=== PATIENT | male | born 1950 | race Caucasian/White ===

== ENCOUNTER → 2018-05-08 | Day surgery (SDC) | payer MEDICARE, BC ==
[2018-05-05 13:08] VITALS: BMI 37.6
[2018-05-08 10:35] VITALS: BP 161/85; TEMP 97.4
--- NOTE | 2018-05-08 14:00 | RAD ---
LUMBAR SPINE MYELOGRAM INDICATION: Low back pain and weakness. PROCEDURE: After informed consent had been obtained, the patient was escorted to the interventional suite and pl aced on the procedural table. Junior Legal [employer] imaging was performed. The patient was placed into a prone posi tion. Skin on the low back was then prepped and draped in the standard sterile fashion and topical a nd regional soft tissue anesthesia was achieved with 1% lidocaine and sodium bicarbonate. Left L4 i nterlaminar approach was selected, and a -22 gauge needle was uneventfully advanced into the thecal s ac with clear color CSF. Subsequently, 9 cc Isovue-M 200 was instilled into the thecal sac under gianni l time fluoroscopy. Appropriate opacification of thecal sac demonstrated with imaging stored for con firmation. The needle was then removed from the patient. The patient tolerated the procedure well a nd was then transferred to CT to undergo subsequent myelogram. Reference separate report for full de tails. EXPOSURE DATA: 0.2 minutes intermittent fluoroscopy, 71 mGy*^m2. IMPRESSION: Technically successful lumbar myelogram as detailed above. POS: CONG
--- NOTE | 2018-05-09 07:47 | CT ---
LUMBAR SPINE CT WITH CONTRAST CT LUMBAR MYELOGRAM: INDICATION: Lumbar radiculopathy, left leg weakness. FINDINGS: There is multilevel posterior metallic fusion spanning L3 through L5 with bilateral pedicle screws at L3, L4, and L5 as well as bilateral vertical interconnecting rods. There is prominent end plate scl erosis compatible with Modic-type III degenerative process of inferior L2 and superior L3. Interosse ous hemangioma posteriorly from the L2 vertebral body. Mild retrolisthesis of L2 on 3 is present. Conus medullaris terminates at the L1 level. L1-2: Trace retrolisthesis with associated disk-osteophyte results in mild narrowing of the central canal and mild bilateral neural foraminal narrowing. L2-3: There is moderate central canal stenosis due to retrolisthesis and disk-osteophyte as well as bilateral facet hypertrophy. There is moderate osseous compromise of each neural foramen. L3-4: Mild narrowing of the central canal due to degenerative osseous hypertrophy. There is mild to moderate bilateral osseous compromise of each neural foramen. L4-5: No high-grade central canal stenosis or osseous compromise of the neural foramen. L5-S1: There is no high-grade osseous compromise of the central canal or neural foramina. There is s cattered vascular disease. IMPRESSION: Postoperative lumbar spine with multilevel degenerative change as outlined above. Findings are most pronounced at the L2-3 level, the level just cephalad to site of multilevel fusion as discussed above . POS: CONG
== END ==
LOC: RAD 09:08 → EDSTATUS 10:00
PROVIDERS: ATTEND Neurological Surgery
DX: M47.26 Other spondylosis with radiculopathy, lumbar region (principal); I12.9 Hypertensive chronic kidney disease with stage 1 through stage 4 chronic kidney disease, or unspecified chronic kidney disease; E11.22 Type 2 diabetes mellitus with diabetic chronic kidney disease; N18.3 Chronic kidney disease, stage 3 (moderate); G95.9 Disease of spinal cord, unspecified; E78.5 Hyperlipidemia, unspecified; Z79.84 Long term (current) use of oral hypoglycemic drugs; Z79.899 Other long term (current) drug therapy
CPT/HCPCS: 62304; 72132

== ENCOUNTER 2018-05-30 06:15 | Inpatient (IN) | payer MEDICARE, BC ==
[2018-05-29 12:24] VITALS: BMI 37.6
[2018-05-30] MEDS ORDERED: Sodium Chloride 0.9% 10 ML ONE (06:24)
[2018-05-30 07:01] LABS: #Eosinphils 0.1 thou/uL (0.0-0.7); #Lymphocytes 2.4 thou/uL (1.20-3.40); #Monocytes 0.5 thou/uL (0.11-0.59); %Basophils 0.7 % (0.0-1.0); %Eosinophils 2.3 % (0.0-10.0); %Lymphocytes 39.9 % (21.0-51.0); %Monocytes 8.9 % (0.0-10.0); %Neutrophils 48.2 % (42.0-75.0); Mean Corpuscular HGB CONC 34.8 g/dL (32.0-36.0); Mean Corpuscular Hemoglobin 32.5 pg (27.0-31.0); Mean Corpuscular Volume 93.3 fL (78.0-98.0); Mean Platelet Volume 6.7 fL (7.4-10.4); Platelet Count 198 thou/uL (130-400); RBC Distribution Width 12.3 % (11.5-14.5); White Blood Cell (WBC) Count 6.1 thou/uL (4.8-10.8)
[2018-05-30] MEDS ORDERED: Fentanyl 250 MCG/5 ML VIAL ONE (07:05)
[2018-05-30] MEDS ORDERED: CEFAZOLIN 2 GM/50 ML BAG ONE (07:05)
[2018-05-30 07:20] LABS: Anion Gap 12 mmol/L (10-20); BUN (Urea Nitrogen) 18 mg/dL (8.4-25.7); Calc. Creatinine Clearance 101 mL/min (70-130); Calcium 9.2 mg/dL (7.8-10.44); Carbon Dioxide 28 mmol/L (23-31); Chloride 103 mmol/L (98-107); Estimated GFR-MDRD 60; Glucose 119 mg/dL (80-115); Potassium 3.9 mmol/L (3.5-5.1); Sodium 139 mmol/L (136-145)
[2018-05-30] MEDS ORDERED: Fentanyl 100 MCG/2 ML VIAL ONE ×3 (09:55→11:04)
[2018-05-30] MEDS ORDERED: Promethazine HCl 12.5 MG SUPP PR PRN (12:21)
[2018-05-30] MEDS ORDERED: traMADol HCl 50 MG TAB PO PRN ×2 (12:21)
[2018-05-30] MEDS ORDERED: diphenhydrAMINE 25 MG CAP PO PRN (12:21)
[2018-05-30] MEDS ORDERED: Promethazine HCl 25 MG/ML VIAL IM PRN (12:21)
[2018-05-30] MEDS ORDERED: diphenhydrAMINE 50 MG/ML VIAL IVP PRN (12:21)
[2018-05-30] MEDS ORDERED: Mag-Al 1200 mg/1200 mg/30 ML UDCUP PO PRN (12:21)
[2018-05-30] MEDS ORDERED: Promethazine 25 MG TAB PO PRN (12:21)
[2018-05-30] MEDS ORDERED: Milk Of Magnesia 30 ML UDCUP PO PRN (12:21)
[2018-05-30] MEDS ORDERED: Morphine 4 MG/ML VIAL SLOW IVP PRN (12:21)
[2018-05-30] MEDS ORDERED: Ondansetron PF 4 MG/2 ML Vial IM PRN (12:24)
[2018-05-30] MEDS ORDERED: Furosemide 20 MG TAB PO PRN (12:33)
[2018-05-30] MEDS ORDERED: Morphine 2 MG/ML SYRINGE SLOW IVP PRN (13:26)
[2018-05-30] MEDS ORDERED: Morphine 10 MG/ML VIAL SLOW IVP PRN (13:28)
[2018-05-30] MEDS: metFORMIN 500 MG TAB PO SCH ×2 (13:42→17:48)
[2018-05-30] MEDS: tiZANidine HCl 4 MG TAB PO PRN ×2 (13:43→23:42)
[2018-05-30] MEDS: HYDROcodone/Acetaminophen 10/325 mg Tablet PO PRN ×3 (13:43→23:43)
[2018-05-30] MEDS ORDERED: Dextrose 50% Abboject 50 ML SYRINGE SLOW IVP PRN (14:48)
[2018-05-30] MEDS ORDERED: Diabetic Tussin 200 MG/10 ML UDCUP PO PRN (14:48)
[2018-05-30] MEDS ORDERED: Senokot S 8.6-50 MG TAB PO PRN (14:48)
[2018-05-30] MEDS ORDERED: hydrALAZINE 20 MG/ML VIAL SLOW IVP PRN (14:48)
[2018-05-30] MEDS ORDERED: Artificial Tear Sol 15 ML BOT EA EYE PRN (14:48)
[2018-05-30] MEDS ORDERED: Dextrose 5% in Water 1,000 ML IV PRN (14:48)
[2018-05-30] MEDS ORDERED: HumaLOG 300 UNITS/3 ML VIAL SC PRN (14:48)
[2018-05-30] MEDS ORDERED: Sodium Chloride 0.65% Nasal 44 ML BOT EA NARE PRN (14:48)
[2018-05-30] MEDS ORDERED: Loperamide HCl 2 MG CAP PO PRN (14:48)
[2018-05-30] MEDS ORDERED: Zolpidem Tartrate 5 MG TAB PO PRN (14:48)
[2018-05-30] MEDS ORDERED: Eucerin (Mineral Oil/Petrolatum,White) 30 gm Jar TOP PRN (14:48)
--- NOTE | 2018-05-30 14:49 | PDOC.PN ---
- Subjective Encounter Start Date: 05/30/18 Encounter Start Time: 15:00 -: old records requested/rev Patient seen and examined. No new complaints. No overnight events - Objective MAR Reviewed: Yes Vital Signs & Weight: Vital Signs (12 hours) Temp Pulse Resp BP Pulse Ox 05/30/18 13:30 65 18 142/61 H 05/30/18 11:30 97.4 F L 57 L 16 153/67 H 99 Weight Weight 270 lb Result Diagrams: 05/30/18 06:50 05/30/18 06:50 Additional Labs: old lab and record reviewed Phys Exam - Physical Examination Constitutional: NAD HEENT: PERRLA, moist MMs, sclera anicteric Neck: no JVD, supple Respiratory: no wheezing, no rales, no rhonchi Cardiovascular: RRR, no significant murmur, no rub Gastrointestinal: soft, non-tender, no distention, positive bowel sounds Musculoskeletal: no edema, pulses present Neurological: non-focal, normal sensation, moves all 4 limbs Lymphatic: no nodes Psychiatric: normal affect, A&O x 3 Skin: no rash, normal turgor Dx/Plan (1) S/P laminectomy with spinal fusion Code(s): Z98.1 - ARTHRODESIS STATUS Status: Acute (2) BPH (benign prostatic hyperplasia) Code(s): N40.0 - BENIGN PROSTATIC HYPERPLASIA WITHOUT LOWER URINRY TRACT SYMP Status: Chronic (3) Diabetes type 2, controlled Code(s): E11.9 - TYPE 2 DIABETES MELLITUS WITHOUT COMPLICATIONS Status: Chronic (4) Dyslipidemia Code(s): E78.5 - HYPERLIPIDEMIA, UNSPECIFIED Status: Chronic (5) Hypertension Code(s): I10 - ESSENTIAL (PRIMARY) HYPERTENSION Status: Chronic (6) Obesity (BMI 30-39.9) Code(s): E66.9 - OBESITY, UNSPECIFIED Status: Chronic - Plan cont current plan of care, plan discussed w/ family, PT/OT * home medication reconciled * hyperglycemia protocol treatment for diabetes * hold BP meds for SBP <120 * code status- full code * medication reviewed as below * symptomatic treatment * continue PT as tolerated * post operative management as per primary team. Review of Systems - Review of Systems ENT: negative: Ear Pain, Ear Discharge, Nose Pain, Nose Discharge, Nose Congestion, Mouth Pain, Mouth Swelling, Throat Pain, Throat Swelling, Other Respiratory: negative: Cough, Dry, Shortness of Breath, Hemoptysis, SOB with Excertion, Pleuritic Pain, Sputum, Wheezing Cardiovascular: negative: chest pain, palpitations, orthopnea, paroxysmal nocturnal dyspnea, edema, light headedness, other Gastrointestinal: negative: Nausea, Vomiting, Abdominal Pain, Diarrhea, Constipation, Melena, Hematochezia, Other Genitourinary: negative: Dysuria, Frequency, Incontinence, Hematuria, Retention , Other Musculoskeletal: Back Pain. negative: Neck Pain, Shoulder Pain, Arm Pain, Hand Pain, Leg Pain, Foot Pain, Other Skin: negative: Rash, Lesions, Chris, Bruising, Other - Medications/Allergies Allergies/Adverse Reactions: Allergies Allergy/AdvReac Type Severity Reaction Status Date / Time No Known Allergies Allergy Verified 05/08/18 10:21 Medications: Current Medications Hydrocodone Bitart/Acetaminophen ([place] 10/325) 1 tab PO Q4H PRN PRN Reason: PAIN (1-3) Last Admin: 05/30/18 13:43 Dose: 1 tab Hydrocodone Bitart/Acetaminophen ([place] 10/325) 2 tab PO Q4H PRN PRN Reason: PAIN (4-6) Al Hydroxide/Mg Hydroxide (Maalox) 30 ml PO Q4H PRN PRN Reason: Heartburn or Indigestion Atorvastatin Calcium (Lipitor) 20 mg PO HS [facility] Calcium/Vitamin D (Caltrate 600 + Vit D) 1 tab PO QAM-WM [facility] Cefazolin Sodium/Dextrose (Ancef 2 Gm/50 Ml) 2 gm IVPB 0000,0800,1600 [facility] Diphenhydramine HCl (Benadryl) 25 mg PO Q6H PRN PRN Reason: Itching Diphenhydramine HCl (Benadryl) 25 mg IVP Q6H PRN PRN Reason: Itching Dronedarone (Multaq) 400 mg PO BID-WM [facility] Furosemide (Lasix) 20 mg PO DAILYPRN PRN PRN Reason: Edema Gabapentin (Neurontin) 900 mg PO HS [facility] Glimepiride (Amaryl) 4 mg PO QAM-WM [facility] Lisinopril/HCTZ (Prinizide 20-12.5) 2 tab PO DAILY [facility] Sodium Chloride (Normal Saline 0.9%) 1,000 mls @ 75 mls/hr IV .[id number] [facility] Magnesium Hydroxide (Milk Of Magnesium) 30 ml PO Q12H PRN PRN Reason: Constipation Metformin HCl (Glucophage) 500 mg PO QID [facility] Last Admin: 05/30/18 13:42 Dose: 500 mg Metoprolol Succinate (Toprol Xl) 100 mg PO DAILY [facility] Morphine Sulfate (Morphine) 2 mg SLOW IVP Q1H PRN PRN Reason: MOD BREAKTHRU PAIN Morphine Sulfate (Morphine) 4 mg SLOW IVP Q1H PRN PRN Reason: SEV BREAKTHRU PAIN Last Admin: 05/30/18 13:42 Dose: 4 mg Multivitamins (Theragran) 1 tab PO DAILY [facility] Glucosamine 0 each PO DAILY [facility] Ondansetron HCl (Zofran) 4 mg IM Q8H PRN PRN Reason: Nausea/Vomiting Promethazine HCl (Phenergan) 12.5 mg IM Q4H PRN PRN Reason: Nausea/Vomiting Promethazine HCl (Phenergan) 12.5 mg PO Q4H PRN PRN Reason: Nausea/Vomiting Promethazine HCl (Phenergan Suppository) 12.5 mg [place] Q4H PRN PRN Reason: Nausea/Vomiting Sodium Chloride (Flush - Normal Saline) 10 ml IVF PRN PRN PRN Reason: Saline Flush Tamsulosin HCl (Flomax) 0.4 mg PO DAILY [facility] Tizanidine HCl (Zanaflex) 4 mg PO Q6H PRN PRN Reason: MUSCLE SPASM Last Admin: 05/30/18 13:43 Dose: 4 mg Tramadol HCl (Ultram) 50 mg PO Q6H PRN PRN Reason: PAIN (1-3) Tramadol HCl (Ultram) 100 mg PO Q6H PRN PRN Reason: PAIN (4-6)
[2018-05-30] MEDS ORDERED: CEFAZOLIN/Water 2 GM/20 ML SYRINGE SLOW IVP SCH (16:00)
[2018-05-30] MEDS: CEFAZOLIN 2 GM/50 ML BAG IVPB SCH ×2 (16:19→23:44)
[2018-05-30] MEDS ORDERED: ePHEDrine 50 MG/ML VIAL ONE (17:28)
[2018-05-30] MEDS ORDERED: Lidocaine 1% PF 5 ML VIAL ONE (17:28)
[2018-05-30] MEDS ORDERED: Ondansetron PF 4 MG/2 ML Vial ONE (17:28)
[2018-05-30] MEDS ORDERED: Glycopyrrolate 0.2 MG/ML 5 ML SYRINGE ONE (17:28)
[2018-05-30] MEDS ORDERED: PROPOFOL 200 MG/20 ML VIAL ONE (17:28)
[2018-05-30] MEDS: Dronedarone HCl 400 MG TAB PO SCH (17:48)
--- NOTE | 2018-05-30 17:49 | OP ---
DATE OF PROCEDURE: 05/30/2018 DIRECTOR OF GRADUATE MEDICAL EDUCATION: Gamaliel. PROCEDURE PERFORMED: Removal of hardware, L3-L5, exploration of spinal fusion, L3-L5, laminectomy L2-L3 plus lateral arthrodesis L2-L3, pedicle screws, demineralized bone matrix, local morselized autograft, L2-L3. DESCRIPTION OF PROCEDURE: The patient was brought to the operating room and intubated. He was rolled in a prone position on gel flat chest rolls. The previous incision was reopened and extended superiorly. We identified the prior hardware, removed the nuts and rods, explored the fusion and it seemed to be solid. We next performed L2-L3 laminectomy, completely decompressed the neural elements with particular attention to the left. After complete decompression had been secured, pedicle screws were placed at L2 bilaterally using lateral fluoroscopic guidance. The eric was secured between L2 and L3 screws, connected by nuts, which were finally tightened. It was then extensively irrigated and the maximum hemostasis was secured. Combination of demineralized bone matrix and local morselized autograft was laid over the posterolateral surfaces for first arthrodesis. Vancomycin powder was applied and the wound was then closed in anatomic layers over drain. Job ID: [id number]
[2018-05-30] MEDS: HumaLOG 300 UNITS/3 ML VIAL SC PRN (19:11)
[2018-05-30] MEDS: Gabapentin 300 MG CAP PO SCH (21:34)
[2018-05-30] MEDS: Atorvastatin Calcium 20 MG TAB PO SCH (21:34)
[2018-05-30] MEDS: Sodium Chloride 0.9% 1,000 ML IV SCH (22:00)
[2018-05-31] MEDS: HumaLOG 300 UNITS/3 ML VIAL SC PRN ×2 (06:10→11:24)
[2018-05-31] MEDS: Lisinopril/Hydrochlorothiazide 20 mg/12.5 mg Tablet PO SCH (08:08)
[2018-05-31] MEDS: CEFAZOLIN 2 GM/50 ML BAG IVPB SCH ×3 (08:08→17:03)
[2018-05-31] MEDS: metFORMIN 500 MG TAB PO SCH ×2 (08:09→17:03)
[2018-05-31] MEDS: Dronedarone HCl 400 MG TAB PO SCH ×2 (08:10→17:03)
[2018-05-31] MEDS: Tamsulosin HCl 0.4 MG CAP PO SCH (08:10)
[2018-05-31] MEDS: Calcium Carbonate + Vit D 1 TAB PO SCH (08:10)
[2018-05-31] MEDS: Glimepiride 4 MG TAB PO SCH (08:10)
[2018-05-31] MEDS: HYDROcodone/Acetaminophen 10/325 mg Tablet PO PRN ×3 (08:11→21:34)
--- NOTE | 2018-05-31 08:54 | PDOC.PN ---
- Subjective Encounter Start Date: 05/31/18 Encounter Start Time: 07:10 Patient seen and examined. No new complaints. No overnight events - Objective Resuscitation Status - Order Detail: 05/30/18 14:48 Resuscitation Status Routine Resuscitation Status: FULL: Full Resuscitation MAR Reviewed: Yes Vital Signs & Weight: Vital Signs (12 hours) Temp Pulse Resp BP BP Pulse Ox 05/31/18 08:08 57 L 05/31/18 07:46 98.4 F 57 L 20 130/60 98 05/31/18 04:13 98.1 F 59 L 16 118/56 L 97 05/30/18 23:56 98.6 F 63 18 146/66 H 97 Weight Weight 270 lb I&O: 05/30/18 05/31/18 06/01/18 06:59 06:59 06:59 Intake Total 2320 Output Total 2439 Balance -119 Result Diagrams: 05/30/18 06:50 05/30/18 06:50 Additional Labs: Accuchecks 05/31/18 05/30/18 05/30/18 06:00 21:38 19:07 POC Glucose 210 H 232 H 212 H Phys Exam - Physical Examination Constitutional: NAD HEENT: PERRLA, moist MMs, sclera anicteric Neck: no JVD, supple Respiratory: no wheezing, no rales, no rhonchi Cardiovascular: RRR, no significant murmur, no rub Gastrointestinal: soft, non-tender, no distention, positive bowel sounds Musculoskeletal: no edema, pulses present Neurological: non-focal, normal sensation, moves all 4 limbs Lymphatic: no nodes Psychiatric: normal affect, A&O x 3 Skin: no rash, normal turgor Dx/Plan (1) S/P laminectomy with spinal fusion Code(s): Z98.1 - ARTHRODESIS STATUS Status: Acute (2) BPH (benign prostatic hyperplasia) Code(s): N40.0 - BENIGN PROSTATIC HYPERPLASIA WITHOUT LOWER URINRY TRACT SYMP Status: Chronic (3) Diabetes type 2, controlled Code(s): E11.9 - TYPE 2 DIABETES MELLITUS WITHOUT COMPLICATIONS Status: Chronic (4) Dyslipidemia Code(s): E78.5 - HYPERLIPIDEMIA, UNSPECIFIED Status: Chronic (5) Hypertension Code(s): I10 - ESSENTIAL (PRIMARY) HYPERTENSION Status: Chronic (6) Obesity (BMI 30-39.9) Code(s): E66.9 - OBESITY, UNSPECIFIED Status: Chronic - Plan cont current plan of care * medication reviewed as below * symptomatic treatment * pt may benefit from rehab * continue PT * medically stable with current treatment * discussed with family. Review of Systems - Review of Systems ENT: negative: Ear Pain, Ear Discharge, Nose Pain, Nose Discharge, Nose Congestion, Mouth Pain, Mouth Swelling, Throat Pain, Throat Swelling, Other Respiratory: negative: Cough, Dry, Shortness of Breath, Hemoptysis, SOB with Excertion, Pleuritic Pain, Sputum, Wheezing Cardiovascular: negative: chest pain, palpitations, orthopnea, paroxysmal nocturnal dyspnea, edema, light headedness, other Gastrointestinal: negative: Nausea, Vomiting, Abdominal Pain, Diarrhea, Constipation, Melena, Hematochezia, Other Genitourinary: negative: Dysuria, Frequency, Incontinence, Hematuria, Retention , Other Musculoskeletal: negative: Neck Pain, Shoulder Pain, Arm Pain, Back Pain, Hand Pain, Leg Pain, Foot Pain, Other Skin: negative: Rash, Lesions, Chris, Bruising, Other - Medications/Allergies Allergies/Adverse Reactions: Allergies Allergy/AdvReac Type Severity Reaction Status Date / Time No Known Allergies Allergy Verified 05/08/18 10:21 Medications: Current Medications Hydrocodone Bitart/Acetaminophen ([place] 10/325) 1 tab PO Q4H PRN PRN Reason: PAIN (1-3) Last Admin: 05/31/18 08:11 Dose: 1 tab Hydrocodone Bitart/Acetaminophen ([place] 10/325) 2 tab PO Q4H PRN PRN Reason: PAIN (4-6) Al Hydroxide/Mg Hydroxide (Maalox) 30 ml PO Q4H PRN PRN Reason: Heartburn or Indigestion Artificial Tears (Tears Renewed 15ml Bottle) 2 drop EA EYE PRN PRN PRN Reason: Dry Eyes Atorvastatin Calcium (Lipitor) 20 mg PO HS [facility] Last Admin: 05/30/18 21:34 Dose: 20 mg Calcium/Vitamin D (Caltrate 600 + Vit D) 1 tab PO QAM-WM [facility] Last Admin: 05/31/18 08:10 Dose: 1 tab Cefazolin Sodium/Dextrose (Ancef 2 Gm/50 Ml) 2 gm IVPB 0000,0800,1600 [facility] Last Admin: 05/31/18 08:08 Dose: 2 gm Dextrose/Water (Dextrose 50%) 25 gm SLOW IVP PRN PRN PRN Reason: Hypoglycemia Diphenhydramine HCl (Benadryl) 25 mg PO Q6H PRN PRN Reason: Itching Diphenhydramine HCl (Benadryl) 25 mg IVP Q6H PRN PRN Reason: Itching Dronedarone (Multaq) 400 mg PO BID-[facility] Last Admin: 05/31/18 08:10 Dose: 400 mg Furosemide (Lasix) 20 mg PO DAILYPRN PRN PRN Reason: Edema Gabapentin (Neurontin) 900 mg PO [facility] Last Admin: 05/30/18 21:34 Dose: 900 mg Glimepiride (Amaryl) 4 mg PO QA-[facility] Last Admin: 05/31/18 08:10 Dose: 4 mg Glucagon (Glucagon) 1 mg IM PRN PRN PRN Reason: Hypoglycemia Guaifenesin (Robitussin Sf) 200 mg PO Q4H PRN PRN Reason: Cough Lisinopril/HCTZ (Prinizide 20-12.5) 2 tab PO DAILY [facility] Last Admin: 05/31/18 08:08 Dose: 2 tab Hydralazine HCl (Apresoline) 10 mg SLOW IVP Q4H PRN PRN Reason: SBP > 180 and HR < 70 Sodium Chloride (Normal Saline 0.9%) 1,000 mls @ 75 mls/hr IV .[id number] [facility] Last Admin: 05/30/18 22:00 Dose: Not Given Dextrose/Water (D5w) 1,000 mls @ 0 mls/hr IV .Q0M PRN PRN Reason: Hypoglycemia Insulin Human Lispro (Humalog) 0 units SC .MODERATE SLIDING SC PRN PRN Reason: Moderate Correctional Scale Last Admin: 05/31/18 06:10 Dose: 4 unit Insulin Human Lispro (Humalog) 0 units SC .BEDTIME SLIDING SC PRN PRN Reason: Bedtime Correctional Scale Last Admin: 05/30/18 21:48 Dose: 2 unit Loperamide HCl (Imodium) 2 mg PO PRN PRN PRN Reason: Diarrhea/Loose Stools Magnesium Hydroxide (Milk Of Magnesium) 30 ml PO Q12H PRN PRN Reason: Constipation Metformin HCl (Glucophage) 1,000 mg PO BID-[facility] Last Admin: 05/31/18 08:09 Dose: 1,000 mg Metoprolol Succinate (Toprol Xl) 100 mg PO DAILY [facility] Last Admin: 05/31/18 08:10 Dose: 100 mg Mineral Oil/White Petrolatum (Eucerin Cream) 0 gm TOP BIDPRN PRN PRN Reason: Dry Skin Morphine Sulfate (Morphine) 2 mg SLOW IVP Q1H PRN PRN Reason: MOD BREAKTHRU PAIN Morphine Sulfate (Morphine) 4 mg SLOW IVP Q1H PRN PRN Reason: SEV BREAKTHRU PAIN Last Admin: 05/30/18 13:42 Dose: 4 mg Multivitamins (Theragran) 1 tab PO DAILY [facility] Last Admin: 05/31/18 08:11 Dose: 1 tab Ondansetron HCl (Zofran) 4 mg IM Q8H PRN PRN Reason: Nausea/Vomiting Promethazine HCl (Phenergan) 12.5 mg IM Q4H PRN PRN Reason: Nausea/Vomiting Promethazine HCl (Phenergan) 12.5 mg PO Q4H PRN PRN Reason: Nausea/Vomiting Promethazine HCl (Phenergan Suppository) 12.5 mg [place] Q4H PRN PRN Reason: Nausea/Vomiting Senna/Docusate Sodium (Senokot S) 2 tab PO BID PRN PRN Reason: Constipation Sodium Chloride (Flush - Normal Saline) 10 ml IVF PRN PRN PRN Reason: Saline Flush Sodium Chloride ([place] Nasal [place] 0.65%) 0 ml EA NARE QIDPRN PRN PRN Reason: Nasal Congestion Tamsulosin HCl (Flomax) 0.4 mg PO DAILY [facility] Last Admin: 05/31/18 08:10 Dose: 0.4 mg Tizanidine HCl (Zanaflex) 4 mg PO Q6H PRN PRN Reason: MUSCLE SPASM Last Admin: 05/30/18 23:42 Dose: 4 mg Tramadol HCl (Ultram) 50 mg PO Q6H PRN PRN Reason: PAIN (1-3) Tramadol HCl (Ultram) 100 mg PO Q6H PRN PRN Reason: PAIN (4-6) Zolpidem Tartrate (Ambien) 5 mg PO HSPRN PRN PRN Reason: Insomnia
[2018-05-31] MEDS ORDERED: GLUCOSAMINE PO SCH (09:00)
[2018-05-31] MEDS ORDERED: Multivit, Therapeutic 1 TAB PO SCH (09:00)
[2018-05-31] MEDS: Sodium Chloride 0.9% 1,000 ML IV SCH (14:27)
[2018-05-31] MEDS: Gabapentin 300 MG CAP PO SCH (21:34)
[2018-05-31] MEDS: Atorvastatin Calcium 20 MG TAB PO SCH (21:37)
[2018-06-01] MEDS: Sodium Chloride 0.9% 1,000 ML IV SCH (00:40)
[2018-06-01] MEDS ORDERED: CEFAZOLIN 2 GM/50 ML BAG IVPB SCH (05:00)
[2018-06-01] MEDS: HumaLOG 300 UNITS/3 ML VIAL SC PRN (06:53)
[2018-06-01] MEDS: Lisinopril/Hydrochlorothiazide 20 mg/12.5 mg Tablet PO SCH (09:08)
[2018-06-01] MEDS: metFORMIN 500 MG TAB PO SCH (09:10)
[2018-06-01] MEDS: HYDROcodone/Acetaminophen 10/325 mg Tablet PO PRN (09:11)
[2018-06-01] MEDS: Calcium Carbonate + Vit D 1 TAB PO SCH (09:11)
[2018-06-01] MEDS: Tamsulosin HCl 0.4 MG CAP PO SCH (09:14)
[2018-06-01] MEDS: Dronedarone HCl 400 MG TAB PO SCH (09:17)
[2018-06-01] MEDS: Glimepiride 4 MG TAB PO SCH (09:18)
--- NOTE | 2018-06-01 10:57 | PDOC.PN ---
- Subjective Encounter Start Date: 06/01/18 Encounter Start Time: 07:10 Patient seen and examined. No new complaints. No overnight events - Objective Resuscitation Status - Order Detail: 05/30/18 14:48 Resuscitation Status Routine Resuscitation Status: FULL: Full Resuscitation MAR Reviewed: Yes Vital Signs & Weight: Vital Signs (12 hours) Temp Pulse Resp BP BP Pulse Ox 06/01/18 09:08 56 L 06/01/18 08:00 99.6 F 56 L 20 148/63 H 95 06/01/18 05:00 98.5 F 56 L 16 124/57 L 93 L 06/01/18 01:10 99.1 F 60 20 137/61 96 Weight Weight 270 lb I&O: 05/31/18 06/01/18 06/02/18 06:59 06:59 06:59 Intake Total 2320 1140 Output Total 2439 1710 Balance -119 -570 Result Diagrams: 05/30/18 06:50 05/30/18 06:50 Additional Labs: Accuchecks 06/01/18 05/31/18 05/31/18 06:45 21:41 16:43 POC Glucose 178 H 173 H 132 H 05/31/18 11:23 POC Glucose 177 H Phys Exam - Physical Examination Constitutional: NAD HEENT: PERRLA, moist MMs, sclera anicteric Neck: no JVD, supple Respiratory: no wheezing, no rales, no rhonchi Cardiovascular: RRR, no significant murmur, no rub Gastrointestinal: soft, non-tender, no distention, positive bowel sounds Musculoskeletal: no edema, pulses present Neurological: non-focal, normal sensation Lymphatic: no nodes Psychiatric: normal affect, A&O x 3 Skin: no rash, normal turgor Dx/Plan (1) S/P laminectomy with spinal fusion Code(s): Z98.1 - ARTHRODESIS STATUS Status: Acute (2) BPH (benign prostatic hyperplasia) Code(s): N40.0 - BENIGN PROSTATIC HYPERPLASIA WITHOUT LOWER URINRY TRACT SYMP Status: Chronic (3) Diabetes type 2, controlled Code(s): E11.9 - TYPE 2 DIABETES MELLITUS WITHOUT COMPLICATIONS Status: Chronic (4) Dyslipidemia Code(s): E78.5 - HYPERLIPIDEMIA, UNSPECIFIED Status: Chronic (5) Hypertension Code(s): I10 - ESSENTIAL (PRIMARY) HYPERTENSION Status: Chronic (6) Obesity (BMI 30-39.9) Code(s): E66.9 - OBESITY, UNSPECIFIED Status: Chronic - Plan cont current plan of care, plan discussed w/ family * drain will be removed later today * medication reviewed as below * symptomatic treatment * discussed with * stable medically * will sing off * resume home meds. Review of Systems - Review of Systems ENT: negative: Ear Pain, Ear Discharge, Nose Pain, Nose Discharge, Nose Congestion, Mouth Pain, Mouth Swelling, Throat Pain, Throat Swelling, Other Respiratory: negative: Cough, Dry, Shortness of Breath, Hemoptysis, SOB with Excertion, Pleuritic Pain, Sputum, Wheezing Cardiovascular: negative: chest pain, palpitations, orthopnea, paroxysmal nocturnal dyspnea, edema, light headedness, other Gastrointestinal: negative: Nausea, Vomiting, Abdominal Pain, Diarrhea, Constipation, Melena, Hematochezia, Other Genitourinary: negative: Dysuria, Frequency, Incontinence, Hematuria, Retention , Other Musculoskeletal: negative: Neck Pain, Shoulder Pain, Arm Pain, Back Pain, Hand Pain, Leg Pain, Foot Pain, Other - Medications/Allergies Allergies/Adverse Reactions: Allergies Allergy/AdvReac Type Severity Reaction Status Date / Time No Known Allergies Allergy Verified 05/08/18 10:21 Medications: Current Medications Hydrocodone Bitart/Acetaminophen ([place] 10/325) 1 tab PO Q4H PRN PRN Reason: PAIN (1-3) Last Admin: 05/31/18 08:11 Dose: 1 tab Hydrocodone Bitart/Acetaminophen ([place] 10/325) 2 tab PO Q4H PRN PRN Reason: PAIN (4-6) Last Admin: 06/01/18 09:11 Dose: 2 tab Al Hydroxide/Mg Hydroxide (Maalox) 30 ml PO Q4H PRN PRN Reason: Heartburn or Indigestion Artificial Tears (Tears Renewed 15ml Bottle) 2 drop EA EYE PRN PRN PRN Reason: Dry Eyes Atorvastatin Calcium (Lipitor) 20 mg PO HS [facility] Last Admin: 05/31/18 21:37 Dose: 20 mg Calcium/Vitamin D (Caltrate 600 + Vit D) 1 tab PO QAM-WM [facility] Last Admin: 06/01/18 09:11 Dose: 1 tab Cefazolin Sodium/Dextrose (Ancef 2 Gm/50 Ml) 2 gm IVPB 0500,1300,2100 [facility] Last Admin: 06/01/18 05:03 Dose: 2 gm Dextrose/Water (Dextrose 50%) 25 gm SLOW IVP PRN PRN PRN Reason: Hypoglycemia Diphenhydramine HCl (Benadryl) 25 mg PO Q6H PRN PRN Reason: Itching Diphenhydramine HCl (Benadryl) 25 mg IVP Q6H PRN PRN Reason: Itching Dronedarone (Multaq) 400 mg PO BID-[facility] Last Admin: 06/01/18 09:17 Dose: 400 mg Furosemide (Lasix) 20 mg PO DAILYPRN PRN PRN Reason: Edema Gabapentin (Neurontin) [address] [facility] Last Admin: 05/31/18 21:34 Dose: 900 mg Glimepiride (Amaryl) 4 mg PO QAM-[facility] Last Admin: 06/01/18 09:18 Dose: 4 mg Glucagon (Glucagon) 1 mg IM PRN PRN PRN Reason: Hypoglycemia Guaifenesin (Robitussin Sf) 200 mg PO Q4H PRN PRN Reason: Cough Lisinopril/HCTZ (Prinizide 20-12.5) 2 tab PO DAILY [facility] Last Admin: 06/01/18 09:08 Dose: 2 tab Hydralazine HCl (Apresoline) 10 mg SLOW IVP Q4H PRN PRN Reason: SBP > 180 and HR < 70 Sodium Chloride (Normal Saline 0.9%) 1,000 mls @ 75 mls/hr IV .[id number] [facility] Last Admin: 06/01/18 00:40 Dose: Not Given Dextrose/Water (D5w) 1,000 mls @ 0 mls/hr IV .Q0M PRN PRN Reason: Hypoglycemia Insulin Human Lispro (Humalog) 0 units SC .MODERATE SLIDING SC PRN PRN Reason: Moderate Correctional Scale Last Admin: 06/01/18 06:53 Dose: 2 unit Insulin Human Lispro (Humalog) 0 units SC .BEDTIME SLIDING SC PRN PRN Reason: Bedtime Correctional Scale Last Admin: 05/30/18 21:48 Dose: 2 unit Loperamide HCl (Imodium) 2 mg PO PRN PRN PRN Reason: Diarrhea/Loose Stools Magnesium Hydroxide (Milk Of Magnesium) 30 ml PO Q12H PRN PRN Reason: Constipation Metformin HCl (Glucophage) 1,000 mg PO BID-[facility] Last Admin: 06/01/18 09:10 Dose: 1,000 mg Metoprolol Succinate (Toprol Xl) 100 mg PO DAILY [facility] Last Admin: 06/01/18 09:17 Dose: 100 mg Mineral Oil/White Petrolatum (Eucerin Cream) 0 gm TOP BIDPRN PRN PRN Reason: Dry Skin Morphine Sulfate (Morphine) 2 mg SLOW IVP Q1H PRN PRN Reason: MOD BREAKTHRU PAIN Morphine Sulfate (Morphine) 4 mg SLOW IVP Q1H PRN PRN Reason: SEV BREAKTHRU PAIN Last Admin: 05/30/18 13:42 Dose: 4 mg Multivitamins (Theragran) 1 tab PO DAILY [facility] Last Admin: 05/31/18 08:11 Dose: 1 tab Ondansetron HCl (Zofran) 4 mg IM Q8H PRN PRN Reason: Nausea/Vomiting Promethazine HCl (Phenergan) 12.5 mg IM Q4H PRN PRN Reason: Nausea/Vomiting Promethazine HCl (Phenergan) 12.5 mg PO Q4H PRN PRN Reason: Nausea/Vomiting Promethazine HCl (Phenergan Suppository) 12.5 mg [place] Q4H PRN PRN Reason: Nausea/Vomiting Senna/Docusate Sodium (Senokot S) 2 tab PO BID PRN PRN Reason: Constipation Sodium Chloride (Flush - Normal Saline) 10 ml IVF PRN PRN PRN Reason: Saline Flush Sodium Chloride ([place] Nasal [place] 0.65%) 0 ml EA NARE QIDPRN PRN PRN Reason: Nasal Congestion Tamsulosin HCl (Flomax) 0.4 mg PO DAILY [facility] Last Admin: 06/01/18 09:14 Dose: 0.4 mg Tizanidine HCl (Zanaflex) 4 mg PO Q6H PRN PRN Reason: MUSCLE SPASM Last Admin: 05/30/18 23:42 Dose: 4 mg Tramadol HCl (Ultram) 50 mg PO Q6H PRN PRN Reason: PAIN (1-3) Tramadol HCl (Ultram) 100 mg PO Q6H PRN PRN Reason: PAIN (4-6) Zolpidem Tartrate (Ambien) 5 mg PO HSPRN PRN PRN Reason: Insomnia
[2018-06-01 11:54] VITALS: BP 109/51; TEMP 98.3
--- NOTE | 2018-06-01 13:01 | DIS ---
DATE OF ADMISSION: 05/30/2018 DATE OF DISCHARGE: 06/01/2018 PRIMARY CARE PHYSICIAN: Dr. Cesario Venegas. DISCHARGE DISPOSITION: Home. PRIMARY DISCHARGE DIAGNOSES: Status post removal of hardware and decompressive laminectomy. SECONDARY DISCHARGE DIAGNOSES: Benign enlargement of prostate, diabetes type 2, dyslipidemia, hypertension, and obesity with BMI 37. PRIMARY PROCEDURE/OPERATION: Decompressive laminectomy and hardware removal. RADIOLOGICAL INVESTIGATION: None. SIGNIFICANT LABORATORY DATA: WBC 6.1, hemoglobin 14.0, and platelet 198. Sodium 139, creatinine 1.20, and calcium 9.2. DISCHARGE MEDICATIONS: 1. Alpine 10 one or two tablets q.6 hourly p.r.n. 2. Lipitor 20 mg p.o. at bedtime. 3. Multivitamin 1 tablet daily. 4. Keflex 500 mg p.o. q.6 hourly as directed. 5. Multaq 400 mg p.o. b.i.d. 6. Lasix 20 mg p.o. p.r.n. as directed. 7. Gabapentin 900 mg p.o. at bedtime. 8. Amaryl 4 mg p.o. daily. 9. Glucosamine chondroitin sulfate 1 capsule daily. 10. Prinzide 20/12.5 two tablet daily. 11. Metformin 500 mg p.o. q.i.d. 12. Toprol-XL 100 mg p.o. daily. 13. Flomax 0.4 mg p.o. daily. 14. Zanaflex 4 mg q.6 hourly p.r.n. CONTRAINDICATIONS: None. CODE STATUS: Full code. 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 Wilks was primary, [employer] Team was consulted for medical comanagement. TEST RESULTS PENDING ON DISCHARGE: None. ALLERGIES: NO KNOWN DRUG ALLERGIES. DISCHARGE PLAN: Posthospital, the patient will follow up with Dr. Cesario Venegas in 1 week. The patient will follow up with Dr. Jimmy Wilks as instructed. HOSPITAL COURSE: A 67-year-old male who has chronic lumbar radiculopathy with chronic left lower extremity weakness and chronic low back pain. He was electively admitted by Dr. Wilks for removal of hardware and decompressive laminectomy was performed. Subsequently, he was admitted to surgical floor. The patient had a drain after surgery that was removed on the day of discharge. While in the hospital, we continued all his home medication. Upon discharge, we also continued selected home medication. The patient will start aspirin therapy when neurosurgeon clears him. While in hospital, the patient was doing very well. His pain was well controlled. He will require rest at home and that is why he did not require any rehab placement at this point. He will follow up with Neurosurgery after discharge as instructed. While in hospital, [employer] Team was following for medical problem. The patient is seen and examined at bedside today. Please see my progress note from today for further details. Job ID: [id number]
--- NOTE | 2018-06-02 03:39 | DIS ---
DATE OF ADMISSION: 05/30/2018 DATE OF DISCHARGE: 06/01/2018 HOSPITAL COURSE: The patient is a 67-year-old male, status post extension of lumbar fusion to L2-L3. Following his surgery, he was transitioned to the floor, where his pain was well controlled with p.o. medications, he was tolerating a regular diet, and voiding appropriately. He still has weakness in the left flank, but has improved, and he has been mobilizing with a walker with assistance of PT. Initially, we discussed inpatient rehab; however, the patient prefers to do his therapy as an outpatient and return home. His WINNIE drain trended down nicely, and was removed on postoperative day #2. We will plan to dismiss the patient to home. I have provided with outpatient physical therapy and occupational therapy orders as well as prescriptions for [place], Zanaflex, and Keflex. We will follow the patient in 2 weeks. Job ID: [id number]
== END 2018-06-01 12:06 | disposition home or self-care (01) | DRG 460 ==
LOC: SURG A 06:15 → 3SE 11:30
PROVIDERS: ADMIT Neurological Surgery; ATTEND Neurological Surgery
PROC: 0SG0071 Fusion of Lumbar Vertebral Joint with Autologous Tissue Substitute, Posterior Approach, Posterior Column, Open Approach (ICD-10-PCS; principal; 2018-05-30)
PROC: 01NB0ZZ Release Lumbar Nerve, Open Approach (ICD-10-PCS; 2018-05-30)
PROC: 0SP004Z Removal of Internal Fixation Device from Lumbar Vertebral Joint, Open Approach (ICD-10-PCS; 2018-05-30)
DX: M54.16 Radiculopathy, lumbar region (principal); N40.0 Benign prostatic hyperplasia without lower urinary tract symptoms; E78.5 Hyperlipidemia, unspecified; E66.9 Obesity, unspecified; Z68.37 Body mass index [BMI] 37.0-37.9, adult; E11.22 Type 2 diabetes mellitus with diabetic chronic kidney disease; I12.9 Hypertensive chronic kidney disease with stage 1 through stage 4 chronic kidney disease, or unspecified chronic kidney disease; N18.9 Chronic kidney disease, unspecified
CPT/HCPCS: 36416; 76001; 80048; 85025; 93005; 93010; C1713; C1768; G8978-GP-CK; G8979-GP-CI; G8987-GO-CK; G8988-GO-CI; J2001; J2270; J2405; J2704; J3010; J3370; J3490

== ENCOUNTER 2018-06-21 15:12 | Outpatient (CLI) | payer MEDICARE, BC ==
--- NOTE | 2018-06-21 17:36 | RAD ---
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 COMPARISON: CT from 05/08/2018. FINDINGS: There is mild levoscoliosis. There has been removal of the interconnecting rods of the bilateral L3 -L4 and L4-L5 fusion hardware. The pedicular screws are still in place. There appears to be new hardware at L2-L3. Laminectomy changes are present. Moderate vascular calcifications. IMPRESSION: Satisfactory postoperative appearance with new hardware as well as interval removal of some of the [place] rdware. POS: [facility]
== END 2018-06-21 15:13 | disposition home or self-care (01) ==
LOC: TBSIIMAG 15:12
PROVIDERS: ATTEND Neurological Surgery
DX: Q76.2 Congenital spondylolisthesis (principal); Z98.1 Arthrodesis status
CPT/HCPCS: 72100

== ENCOUNTER 2018-08-02 14:22 | Outpatient (CLI) | payer MEDICARE, BC ==
--- NOTE | 2018-08-02 15:09 | RAD ---
CT LUMBAR SPINE TWO VIEWS: 08/02/2018 HISTORY: Other intervertebral disk degeneration, lumbar spine. Followup back surgery. Patient unable to shawn d. COMPARISON: 06/21/2018 FINDINGS: There are bipedicular screws present in the L2, L3, L4, and L5 vertebral bodies, with interconnecting rods transfixing the pedicular screws at the L2-L3 level. Laminectomy defects are again seen at the se levels. No hardware complication is seen. Multilevel degenerative changes are seen in the lumbar spine with left convex scoliosis of the thorac olumbar spine. Laminectomy defects are again seen involving the lumbar spine. Vascular calcificatio ns are seen in the abdominal aorta and involving the iliac arteries. There has been no interval duong ge from the prior exam. IMPRESSION: 1. Postoperative and degenerative changes of the lumbar spine, stable from prior study. 2. Left convex rotoscoliosis of the thoracolumbar spine. POS: [facility]
== END 2018-08-02 14:23 | disposition home or self-care (01) ==
LOC: TBSIIMAG 14:22
PROVIDERS: ATTEND Neurological Surgery
DX: M51.36 Other intervertebral disc degeneration, lumbar region (principal); M47.816 Spondylosis without myelopathy or radiculopathy, lumbar region; M41.85 Other forms of scoliosis, thoracolumbar region; Z98.890 Other specified postprocedural states
CPT/HCPCS: 72100; 87077; 87086; 87186